=== PATIENT | female | born 1990 | race Caucasian/White ===

== ENCOUNTER 2021-02-17 15:05 | Observation (INO) | payer MEDICAID ==
[~2021-02-17] VITALS: Ht 170.2 cm; Wt 104.3 kg
[2021-02-17 15:45] VITALS: BP 105/65
[2021-02-17] MEDS ORDERED: PRETAB PO (15:49)
== END 2021-02-17 16:15 | disposition home or self-care (01) ==
LOC: MLD 15:05
PROVIDERS: ADMIT Obstetrics & Gynecology; ATTEND Obstetrics & Gynecology
DX: O36.8120 Decreased fetal movements, second trimester, not applicable or unspecified (principal); Z3A.22 22 weeks gestation of pregnancy
CPT/HCPCS: 59025; G0378